=== PATIENT | male | born 1935 | race Caucasian/White ===

== ENCOUNTER 2019-08-18 13:40 | Emergency (ER) | payer MEDICARE, OTHER, SELFPAY ==
--- NOTE | ~2019-08-18 | XR_ITS ---
EXAMINATION: XR chest 2V DATE: 08/18/2019 15:09 INDICATION: Hypertension. TECHNIQUE: Frontal and lateral views of the chest were obtained. COMPARISON: Chest 2 views 11/27/2017, chest CT 06/26/2017 FINDINGS: The lungs are hyperexpanded with lucencies and interstitial opacities, consistent with emph ysema. There is mild scarring at the lung apices. There is mild atelectasis at the lung bases. No ple ural effusion or pneumothorax. The heart size is normal. IMPRESSION: 1. Emphysema. 2. Mild atelectasis at the lung bases. Reviewed, dictated and finalized at location A. WAY TECHNICIAN
[2019-08-18 13:55] VITALS: BP 193/72; PULSE 79; RESP 18; TEMP 36.6; O2SAT 96
--- NOTE | 2019-08-18 14:16 | ECG_ITS ---
Measurements Intervals [place] Rate: 84 P: 99 MN: 168 QRS: -74 QRSD: 93 T: 61 QT: 346 QTc: 411 Interpretive Statements SINUS RHYTHM POSSIBLE LEFT ATRIAL ENLARGEMENT LEFT ANTERIOR FASCICULAR BLOCK CANNOT RULE OUT SEPTAL INFARCT, AGE INDETERMINATE BASELINE ARTIFACT- I, II, AVR, AVL, AVF, V2, V4-V6 ABNORMAL ECG Electronically Signed On 08-18-2019 15:01:31 [employer] E[employer]CEMENT OFFICER by Rusty Rowell D.O.
--- NOTE | 2019-08-18 14:27 | ED.GENADULT ---
HPI - General Adult General Chief complaint: Unspecified <Bubba Lara PA-C - Last Filed: 08/18/19 16:26> Stated complaint: Elevated BP <Bubba Lara PA-C - Last Filed: 08/18/19 16:26> Time Seen by Provider: 08/18/19 14:11 <Bubba Lara PA-C - Last Filed: 08/18/19 16:26> Source: patient <Bubba Lara PA-C - Last Filed: 08/18/19 16:26> Mode of arrival: ambulatory <Bubba Lara PA-C - Last Filed: 08/18/19 16:26> Limitations: no limitations <Bubba Lara PA-C - Last Filed: 08/18/19 16:26> History of Present Illness HPI narrative: Patient is a 83-year-old male who presents to emergency department for evaluation of elevated blood pressure reading that was noticed this morning at 2 AM when he woke patient found his blood pressure to be elevated notes that he did feel anxious presents today noting that he was concern for elevated blood pressure denies any pain or other complaints does not take any blood pressure medication. Patient on arrival is noted resting comfortably in no distress with no other complaints <Bubba Lara PA-C - Last Filed: 08/18/19 16:26> Related Data Allergies/adverse reactions: Allergies Allergy/AdvReac Type Severity Reaction Status Date / Time levofloxacin Allergy Unknown Unknown Verified 08/18/19 13:54 <Bubba Lara PA-C - Last Filed: 08/18/19 16:26> Review of Systems Review of Systems: All systems reviewed & are unremarkable except as noted in HPI and below <Bubba Lara PA-C - Last Filed: 08/18/19 16:26> [facility] Family History Family History: Family History Sibling Family history of malignant neoplasm Malignant neoplasm of prostate Family history of lung cancer Father Family history of chronic obstructive pulmonary disease, Onset Age: 84 Mother Family history of lung cancer <MAYURI Joseph Last Filed: 08/18/19 16:26> Social History Social History: Social History Smoking status: Never smoker Smoking end date: 06/17/81 <MAYURI Joseph Last Filed: 08/18/19 16:26> Exam Narrative: Exam Narrative: GENERAL: Well-appearing, well-nourished, and in no acute distress. HEAD: Normocephalic, atraumatic. EYES: PERRLA and EOMI. ENT: Nares clear, no rhinorrhea or epistaxis. Mucous membranes moist. Oropharynx without tonsillar hypertrophy exudate or other lesions. NECK: Supple. No adenopathy or masses. CHEST: Clear to auscultation. No respiratory distress. No wheezes rales or rhonchi HEART: Regular rate and rhythm. No murmur heard. Normal peripheral pulses. ABDOMEN: Soft, nontender, nondistended EXTREMITIES: Normal range of motion. No edema. SKIN: Warm, dry, no rash. NEURO: No focal deficits. Alert and oriented x3. Cranial nerves II through XII grossly intact PSYCH: Normal mood and affect. <MAYURI Joseph Last Filed: 08/18/19 16:26> Course Consultations Consultation #1: Spoke with patient's primary care who will see him in clinic on Saturday at 130 notes that he has a history of hypertension has been noncompliant with medications and has refused to take blood pressure medication patient also has history of thrombocytopenia and will be followed in clinic with no recommendations to start medications at this time <MAYURI Joseph Last Filed: 08/18/19 16:26> Date: 08/18/19 <MAYURI Joseph Last Filed: 08/18/19 16:26> Vital Signs Vital signs: Vital Signs Temperature 36.6 C 08/18/19 13:55 Pulse Rate 79 08/18/19 13:55 Respiratory Rate 18 08/18/19 13:55 Blood Pressure 193/72 H 08/18/19 13:55 Pulse Oximetry 96 08/18/19 13:55 Temperature 36.6 C 08/18/19 13:55 Pulse Rate 105 H 08/18/19 16:35 Respiratory Rate 16 08/18/19 16:35 Blood Pressure 185/100 H 08/18/19 16:35 Pulse Oxim
[2019-08-18 14:51] LABS: Basophils Percent Auto 0.3 % (0.2-1.2); Hematocrit 40.8 % (42.0-52.0); Hemoglobin 13.1 g/dL (14.0-18.0); Immature Granulocyte Absolute 0.01 K/mm3 (0.00-0.031); Immature Granulocyte Percent A 0.3 % (0-0.5); Immature Platelet Fraction Pct 18.6 % (0.9-11.2); Lymphocytes Absolute Auto 1.62 K/mm3 (0.9-3.2); Lymphocytes Percent Auto 50.2 % (18.3-44.2); Mean Corpuscular HGB Conc 32.1 g/dl (32-36); Mean Corpuscular Volume 90.5 fl (80-100); Mean Platelet Volume 13.1 fl (7.4-10.4); Monocytes Absolute Auto 0.5 K/mm3 (0.1-0.6); Monocytes Percent Auto 16.4 % (2.6-8.5); Neutrophils Absolute Auto 1.1 K/mm3 (1.3-6.7); Neutrophils Percent Auto 32.8 % (45.5-73.1); Platelet Count Result 94 k/mm3 (150-375); Red Blood Count 4.51 M/mm3 (4.6-6.20); Red Cell Distribution Width 13.9 % (11.5-14.5); White Blood Count 3.2 K/mm3 (4.5-10.0)
[2019-08-18 15:01] LABS: Alanine Aminotransferase 15 U/L (4-50); Albumin Level 4.4 g/dL (3.5-5.1); Alkaline Phosphatase 61 U/L (38-126); Aspartate Amino Transferase 25 U/L (17-59); Bilirubin,Total 0.7 mg/dL (0.2-1.3); Blood Urea Nitrogen 9 mg/dL (9-20); Calcium 9.2 mg/dL (8.4-10.2); Carbon Dioxide 31 mmol/L (22-30); Chloride 96 mmol/L (98-107); Estimated Glomerular Filt Rate > 60; Glucose 90 mg/dL (75-110); Potassium 4.5 mmol/L (3.4-5.0); Sodium 135 mmol/L (137-145)
[2019-08-18 15:13] LABS: Troponin I < 0.012 ng/mL (0.000-0.034)
[2019-08-18 16:35] VITALS: BP 185/100; PULSE 105; RESP 16; O2SAT 95
== END 2019-08-18 16:41 | disposition home or self-care (01) ==
PROVIDERS: Emergency Medicine Emergency Medical Services; Emergency Provider Emergency Medicine
DX: I10 Essential (primary) hypertension (principal); R94.31 Abnormal electrocardiogram [ECG] [EKG]; I44.4 Left anterior fascicular block
CPT/HCPCS: 36415; 71046; 80053; 84484; 85025; 85055; 87804; 93005; 99284

== ENCOUNTER 2019-11-20 13:44 | Emergency (ER) | payer MEDICARE, OTHER, SELFPAY ==
--- NOTE | ~2019-11-20 | XR_ITS ---
XR chest 1V portable DATE: 11/20/2019 14:08 INDICATION: Cough, shortness of breath, fever TECHNIQUE: Portable upright AP chest on 11/20/2019 at 1409 hours COMPARISON: 08/18/2019 PA and lateral chest FINDINGS: Bilateral hyperinflation consistent with COPD. Chronic interstitial fibrotic changes at the lung bases. No pulmonary consolidation, pleural effusion, pulmonary vascular congestion or pneumotho rax is evident. Heart size is normal. No hilar or mediastinal enlargement. Diffuse osteopenia. IMPRESSION: Bilateral hyperinflation consistent with COPD Chronic interstitial fibrotic changes at the lung bases Reviewed, dictated and finalized at location A.
[2019-11-20 13:54] VITALS: BP 184/84; PULSE 98; RESP 20; TEMP 36.8; O2SAT 96
--- NOTE | 2019-11-20 13:56 | ED.GENADULT ---
HPI - General Adult General Chief complaint: Unspecified Stated complaint: wants COVID test, subjective fever Time Seen by Provider: 11/20/19 13:46 History of Present Illness HPI narrative: 84 yo w/ h/o COPD presents requesting COVID-19 testing. He reports that he is SOB. No more than baseline. He does not require O2 and it does not limit his activities. He contacted his PCP and they suggested that he get tested for COVID-19. No fever, sick contacts. Related Data Allergies Allergy/AdvReac Type Severity Reaction Status Date / Time levofloxacin Allergy Unknown Unknown Verified 11/20/19 13:58 Review of Systems Review of Systems: All systems reviewed & are unremarkable except as noted in HPI and below PMFSH Past Medical History Medical History Asthma Community acquired pneumonia COPD (chronic obstructive pulmonary disease) Dupuytrens contracture Hypertension Surgical History Surgical History (Updated 08/31/19 @ 11:12 by Deepali Vital [facility]) H/O hernia repair Family History Family History Sibling Family history of malignant neoplasm Malignant neoplasm of prostate Family history of lung cancer Father Family history of chronic obstructive pulmonary disease, Onset Age: 84 Mother Family history of lung cancer Social History Social History Smoking status: Never smoker Smoking end date: 06/17/81 Gender identity (if verbalized by the patient): Male Exam Const: General: healthy appearing, no acute distress and alert Orientation/consciousness: patient oriented x3 HENMT: Head: normal to inspection Neck: Neck: normal visual inspection and no lymphadenopathy Chest: Chest palpation & inspection: no tenderness Resp: Effort & Inspection: normal respiratory effort Auscultation: clear to auscultation bilaterally, rhonchi and wheezes Cardio: Jugular venous distension: no JVD Rate: regular rate Rhythm: regular rhythm Heart sounds: no murmurs GI: Inspection: non-distended GI Palp: Yes Soft to palpation and No Tenderness to palpation present (GI) Skin: General skin exam: normal color Neuro: General: patient oriented x3 and moves all extremities Speech: normal speech Extrem: General: no edema Psych: Appearance: well kempt Affect: normal affect Course Vital Signs Vital signs: Vital Signs Temperature 36.8 C 11/20/19 13:54 Pulse Rate 98 11/20/19 13:54 Respiratory Rate 20 11/20/19 13:54 Blood Pressure 184/84 H 11/20/19 13:54 Pulse Oximetry 96 11/20/19 13:54 Temperature 36.6 C 11/20/19 15:05 Pulse Rate 76 11/20/19 15:05 Respiratory Rate 16 11/20/19 15:05 Blood Pressure 154/76 H 11/20/19 15:05 Pulse Oximetry 98 11/20/19 15:05 Medical Decision Making MDM Narrative Medical decision making narrative: He has minimal wheezing with good air movment. He is able to walk long distances without restriction. He has no obvious indication that he has COVID-19 and ceratinly does not need admission. I will order testing and a chest x-ray. and have him follow-up with his PCP Vital Signs Vital Signs: Vital Signs Temperature 36.8 C 11/20/19 13:54 Pulse Rate 98 11/20/19 13:54 Respiratory Rate 20 11/20/19 13:54 Blood Pressure 184/84 H 11/20/19 13:54 Pulse Oximetry 96 11/20/19 13:54 Temperature 36.6 C 11/20/19 15:05 Pulse Rate 76 11/20/19 15:05 Respiratory Rate 16 11/20/19 15:05 Blood Pressure 154/76 H 11/20/19 15:05 Pulse Oximetry 98 11/20/19 15:05 Lab Data Labs: Lab Results 11/20/19 Range/Units 14:32 SARS-CoV-2 RNA (RT-PCR) Negative Discharge Plan Discharge Clinical Impression: COPD (chronic obstructive pulmonary disease) Patient Disposition: Home, Self-Care Condition: Stable Instructions: COPD (Chronic Obstructive Pulmonary Di
[2019-11-20 13:58] VITALS: RESP 20; O2SAT 96
[2019-11-20 15:05] VITALS: BP 154/76; PULSE 76; RESP 16; TEMP 36.6; O2SAT 98
[2019-11-21 13:39] LABS: SARS-CoV-2 RNA PCR Negative
== END 2019-11-20 15:06 | disposition home or self-care (01) ==
PROVIDERS: Emergency Provider Emergency Medicine
DX: J44.9 Chronic obstructive pulmonary disease, unspecified (principal); Z20.828 Contact with and (suspected) exposure to other viral communicable diseases; I10 Essential (primary) hypertension; M72.0 Palmar fascial fibromatosis [Dupuytren]
CPT/HCPCS: 71045; 87635; 99283; C9803; U0003

== ENCOUNTER 2020-03-03 10:45 | Emergency (ER) | payer MEDICARE, OTHER, SELFPAY ==
--- NOTE | ~2020-03-03 | CT_ITS ---
EXAMINATION: CT brain wo con EXAM DATE: 03/03/2020 11:31 INDICATION: Fall, head injury. TECHNIQUE: Spiral CT of the head was performed without contrast. Axial, coronal and sagittal images were reviewed. The dose-length product (DLP) for this examination was 605.33 mGy-cm. The exposure w as tailored according to patient size, and iterative reconstruction (ASIR) was used as additional dos e reduction technique. There is no prior study for comparison. FINDINGS: There is no acute intraparenchymal hemorrhage. Mild microangiopathy and cerebral atrophy. N o evidence of intraparenchymal brain mass lesion. No evidence of acute infarction. There is no mass effect or midline shift. The ventricles are normal in size. There are no extra-axial collections. There are no acute calvarial fractures. The orbits are unremarkable. Soft tissue is unremarkable. The visualized sinuses and mastoid air cells are well aerated. IMPRESSION: 1. No acute intracranial findings. 2. Mild age-related findings. Reviewed, dictated and finalized at location A.
[2020-03-03 10:56] VITALS: BP 182/80; PULSE 90; RESP 18; TEMP 36.4; O2SAT 100
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
[2020-03-03 12:16] VITALS: BP 173/84; PULSE 67; RESP 18; O2SAT 99
[2020-03-03 12:26] VITALS: BP 170/84; PULSE 82; RESP 98; O2SAT 98
== END 2020-03-03 12:27 | disposition home or self-care (01) ==
PROVIDERS: Emergency Provider Emergency Medicine
DX: S09.90XA Unspecified injury of head, initial encounter (principal); V18.4XXA Pedal cycle driver injured in noncollision transport accident in traffic accident, initial encounter; I10 Essential (primary) hypertension; J43.9 Emphysema, unspecified; Z87.891 Personal history of nicotine dependence
CPT/HCPCS: 70450; 99284

== ENCOUNTER 2020-11-07 08:39 | Emergency (ER) | payer MEDICARE, OTHER, SELFPAY ==
--- NOTE | ~2020-11-07 | CT_ITS ---
EXAMINATION: CT brain wo con INDICATION: Altered mental status, visual hallucinations COMPARISON: 03/03/2020 TECHNIQUE: Standard unenhanced head CT. The dose-length product (DLP) was 605.33 mGy-cm. The mA was a djusted according to patient size. Iterative reconstruction technique was employed. FINDINGS: There is no acute intraparenchymal hemorrhage. No evidence of mass lesion. No evidence of a cute infarction. There is mild periventricular and subcortical hypodensity probably related to small vessel ischemic disease. There is mild prominence of the sulci and ventricles related to cerebral atr ophy. Intracranial calcified cerebral atherosclerosis is noted. There are no extra-axial collections. There is no mass effect or midline shift. The orbits and soft tissues are unremarkable. There is mil d mucosal thickening of the paranasal sinuses. IMPRESSION: 1. No acute intracranial abnormality. 2. Age related findings. Reviewed, dictated and finalized at location A.
--- NOTE | ~2020-11-07 | XR_ITS ---
EXAMINATION: XR chest 1V DATE: 11/07/2020 09:26 INDICATION: Altered mental status. TECHNIQUE: A single frontal view of the chest was obtained. COMPARISON: Chest single view 11/20/2019, chest CT 06/26/2017 FINDINGS: There are lucencies and chronic interstitial opacities in the lungs, consistent with emphys harini. No pleural effusion or pneumothorax. The heart size is normal. IMPRESSION: 1. Severe emphysema. Reviewed, dictated and finalized at location B. IMPRESSION: 1. Severe emphysema.
[2020-11-07 08:43] VITALS: BP 201/92; PULSE 93; RESP 17; TEMP 36.6; O2SAT 98
--- NOTE | 2020-11-07 09:07 | ECG_ITS ---
Measurements Intervals [place] Rate: 75 P: 77 VT: 145 QRS: -74 QRSD: 105 T: 40 QT: 392 QTc: 438 Interpretive Statements SINUS RHYTHM LEFT ANTERIOR FASCICULAR BLOCK BASELINE ARTIFACT- II, III, AVF, V1, V3-V6 ABNORMAL ECG Electronically Signed On 11-07-2020 9:57:17 CDT by Rusty Rowell D.O.
--- NOTE | 2020-11-07 09:15 | ED.GENADULT ---
HPI - General Adult General Chief complaint: Unspecified Stated complaint: having visions/hallucinations/head sore Time Seen by Provider: 11/07/20 08:58 Source: RN notes reviewed History of Present Illness HPI narrative: Patient presents emergency department from home for visual hallucinations. He states for the past 4 days he has been having intermittent visual hallucinations which he sees things that are not there or sees things in different colors. He states he knows he is or not real he denies hearing any voices or having any auditory hallucinations he denies any fevers or chills, headache, numbness or tingling in extremities, chest pain shortness of breath or any other symptoms. Patient denies any new medications patient does states that he fell back in April 2020 and has an area on his left posterior scalp that will intermittently swell on him but denies any new headaches or pain at this time Related Data Home Medications Medication Instructions Recorded Confirmed ascorbic acid (vitamin C) 100 mg 100 mg PO DAILY 03/01/20 03/02/20 tablet mecobalamin (vitamin B12) 1,000 1,000 mcg PO DAILY 03/01/20 03/02/20 mcg chewable tablet multivitamin 1 tablet PO DAILY 03/01/20 03/02/20 pyridoxine (vitamin B6) 100 mg 100 mg PO DAILY 03/01/20 03/02/20 tablet vitamin E (dl, acetate) 400 unit 450 mg PO DAILY 03/01/20 03/02/20 capsule albuterol sulfate 90 mcg/actuation 1 puff INHALATION Q4H PRN 03/02/20 03/02/20 aerosol inhaler Allergies Allergy/AdvReac Type Severity Reaction Status Date / Time levofloxacin Allergy Unknown Unknown Verified 03/03/20 11:01 Review of Systems Review of Systems: Narrative: Gen.: Denies fevers or chills Eyes: See HPI ENT: Denies congestion Respiratory: Denies shortness of breath or cough CV: Denies chest pain or palpitations GI: Denies abdominal pain nausea, emesis or diarrhea Musculoskeletal: Denies back pain or muscle pain Neuro: Denies numbness, tingling, weakness or focal weakness Skin: Denies rash Except as documented, all other systems reviewed and negative [facility] Past Medical History Medical History (Updated 11/07/20 @ 12:40 by Fabiano Copeland DO) Asthma Community acquired pneumonia COPD (chronic obstructive pulmonary disease) Dupuytrens contracture Hypertension Surgical History Surgical History (Updated 08/31/19 @ 11:12 by Deepali Vital [facility]) H/O hernia repair Family History Family History (Updated 03/01/20 @ 13:09 by Vesna Jolley [facility]) Sibling Family history of malignant neoplasm Malignant neoplasm of prostate Family history of lung cancer Leukemia Father Family history of chronic obstructive pulmonary disease, Onset Age: 84 Mother Family history of lung cancer Social History Social History Smoking status: Never smoker Smoking end date: 06/17/81 Gender identity (if verbalized by the patient): Male Exam Narrative: Exam Narrative: APPEARANCE: No acute distress, nontoxic, resting in bed EYES: EOMI, PERRL HEENT: Normocephalic, atraumatic, OMM RESPIRATORY: No respiratory distress Clear to auscultation bilaterally with no rhonchi wheezing or rales. CARDIOVASCULAR: Regular rate and rhythm without murmurs rubs or gallops. ABDOMINAL: Soft, nontender, nondistended, no rebound or guarding MUSCULOSKELETAl: Moves all extremities. No clubbing, cyanosis or edema. NEURO: Awake and alert x 4. Following commands, speech normal, no focal deficits SKIN:: Warm, dry. No rashes lesions or abrasions PSYCHIATRIC: Normal affect/mood, Course Course Emergency Course: : Discussed with patient's PCP Dr. Torres presentation work-up states the patient has had similar complaints before in the past seen ophthalmology and has had several CTs including MRI agrees with plan for discharge to follow-up as an outpatient States he is scheduled to see ophthalmology tomorrow Discussed with edmundo
[2020-11-07 09:30] VITALS: PULSE 82
[2020-11-07 09:52] LABS: Basophils Percent Auto 0.2 % (0.2-1.2); Eosinophils Percent Auto 0.2 % (0-4.4); Hematocrit 43.7 % (42.0-52.0); Hemoglobin 14.3 g/dL (14.0-18.0); Immature Granulocyte Absolute 0.02 K/mm3 (0.00-0.031); Immature Granulocyte Percent A 0.4 % (0-0.5); Lymphocytes Absolute Auto 1.16 K/mm3 (0.9-3.2); Lymphocytes Percent Auto 24.9 % (18.3-44.2); Mean Corpuscular HGB Conc 32.7 g/dl (32-36); Mean Corpuscular Hemoglobin 29.4 pg (26-34); Mean Corpuscular Volume 89.9 fl (80-100); Mean Platelet Volume 11.9 fl (7.4-10.4); Monocytes Absolute Auto 0.8 K/mm3 (0.1-0.6); Neutrophils Absolute Auto 2.7 K/mm3 (1.3-6.7); Neutrophils Percent Auto 57.3 % (45.5-73.1); Platelet Count Result 106 k/mm3 (150-375); Red Blood Count 4.86 M/mm3 (4.6-6.20); Red Cell Distribution Width 13.9 % (11.5-14.5); White Blood Count 4.7 K/mm3 (4.5-10.0)
[2020-11-07 10:04] LABS: Partial Thromboplastin Time 30.8 SECONDS (22.3-36.8); Prothrombin Time 13.4 Seconds (11.1-14.7)
[2020-11-07 10:05] LABS: Ethanol < 10 mg/dL (<10)
[2020-11-07 10:14] VITALS: BP 178/81; PULSE 85; RESP 17; O2SAT 96
--- NOTE | 2020-11-07 10:16 | PC.NURSE ---
Addendum entered by Svitlana Patel RN 11/07/20 10:17: pt states this is the fist time that he has ever seen things Original Note: pt reports seeing cute little critters running about . pt denies hearing voices.
[2020-11-07 10:34] LABS: Add Urine Microscopic? YES; Appearance Urine Clear (Clear); Bacteria Urine Trace /hpf; Bilirubin Urine Negative (Negative); Blood Urine Negative (Negative); Color Urine Yellow (Yellow); Glucose Urine UA Negative (Negative); Ketones Urine Negative (Negative); Leukocyte Esterase Ur Negative LEU/UL (Negative); Nitrate Urine Negative (Negative); Protein Urine Negative (Negative); Urobilinogen Urine Negative mg/dL (<2.0); WBC Urine 0-3 /hpf
[2020-11-07 11:14] LABS: Alanine Aminotransferase 20 U/L (4-50); Albumin Level 3.9 g/dL (3.5-5.1); Alkaline Phosphatase 60 U/L (38-126); Anion Gap 3 mmol/L (8-16); Aspartate Amino Transferase 30 U/L (17-59); Bilirubin,Total 0.5 mg/dL (0.2-1.3); Blood Urea Nitrogen 9 mg/dL (9-20); Calcium 9.2 mg/dL (8.4-10.2); Carbon Dioxide 34 mmol/L (22-30); Chloride 99 mmol/L (98-107); Estimated Glomerular Filt Rate > 60; Glucose 95 mg/dL (75-110); Potassium 3.9 mmol/L (3.4-5.0); Sodium 136 mmol/L (137-145)
[2020-11-07 12:55] VITALS: BP 132/66; PULSE 78; RESP 18; O2SAT 99
== END 2020-11-07 12:58 | disposition home or self-care (01) ==
PROVIDERS: Emergency Provider Emergency Medicine
DX: R44.1 Visual hallucinations (principal); J43.9 Emphysema, unspecified; I10 Essential (primary) hypertension; M72.0 Palmar fascial fibromatosis [Dupuytren]; I44.4 Left anterior fascicular block; Z79.899 Other long term (current) drug therapy
CPT/HCPCS: 36415; 70450; 71045; 80053; 80307; 81001; 85025; 85610; 85730; 93005; 99284

== ENCOUNTER 2021-06-10 22:00 | Emergency (ER) | payer MEDICARE, OTHER, SELFPAY ==
[2021-06-10] VITALS (12 sets, daily range): BP systolic 175–204; BP diastolic 86–102; PULSE 88–101; RESP 24–40; TEMP 36.9; O2SAT 88–100
--- NOTE | ~2021-06-10 | CT_ITS ---
EXAMINATION: CT diagnostic chest wo con DATE: 06/10/2021 22:48 INDICATION: Right chest wall injury TECHNIQUE: Computed tomography (CT) of the chest was performed without intravenous contrast. Addition al 3D reconstructions utilizing coronal maximum intensity projection (MIP) were performed. Automated exposure control and iterative reconstruction technique were employed. The dose-length product was 23 7.46 mGy-cm. COMPARISON: 06/26/2017 FINDINGS: Mildly displaced mildly comminuted fractures at the lateral head of the right clavicle. Mildly displa hussain fractures of the posterior right third-11th ribs. There is some callus formation associated with subacute to chronic fractures of the anterolateral left fourth-seventh ribs. Severe emphysema. Very s mall right hydropneumothorax. 1.7 x 1.1 cm nodular opacity anterior segment of the right upper lobe. 6-7 mm nodule at the right middle lobe. Additional cluster of small nodular opacities in the dependen t left lower lobe with distribution suggesting aspiration or pneumonia. Small amount of mucus in the trachea and right mainstem bronchus. Heart size is normal. Atherosclerotic coronary artery calcificat ion is. No pericardial effusion. Mildly ectatic ascending thoracic aorta measuring up to 3.9 cm in ma ximal diameter. No pathologically enlarged thoracic lymphadenopathy. Small amount of soft tissue gas along the anterior right chest wall. Several tiny calcified gallstones in dependent aspect of the par tially visualized normal-appearing gallbladder. IMPRESSION: 1. Acute mildly displaced posterior right third-11th rib fractures with small right hydropneumothorax . 2. Mildly displaced mildly comminuted fractures of the lateral head of the right clavicle. 3. Increase in size of a nodule measuring 6 mm on 06/26/2017, now 1.7 x 1.1 cm in the right upper lobe which is very concerning for primary bronchogenic carcinoma. The location within a couple millimeter of the anterior wall of the ascending aorta would be technically challenging and at relatively high risk for percutaneous biopsy. 4. Cluster of small nodules in the dependent left lower lobe suspicious for aspiration and/or pneumon ia. 5. Cholelithiasis. Reviewed, dictated and finalized at [facility] IMPRESSION: 1. Acute mildly displaced posterior right third-11th rib fractures with small r ight hydropneumothorax. 2. Mildly displaced mildly comminuted fractures of the lateral head of the righ t clavicle. 3. Increase in size of a nodule measuring 6 mm on 06/26/2017, now 1.7 x 1.1 cm i n the right upper lobe which is very concerning for primary bronchogenic carcin charlene. The location within a couple millimeter of the anterior wall of the ascend ing aorta would be technically challenging and at relatively high risk for perc utaneous biopsy. 4. Cluster of small nodules in the dependent left lower lobe suspicious for asp iration and/or pneumonia. 5. Cholelithiasis.
--- NOTE | ~2021-06-10 | CT_ITS ---
EXAMINATION: CT brain wo con DATE: 06/10/2021 22:48 INDICATION: Fall. Head injury. TECHNIQUE: Computed tomography (CT) of the head was performed without intravenous contrast. The mA wa s adjusted according to patient size. Iterative reconstruction technique was employed. Exam dose: 68 1.00 mGy-cm total exam DLP. COMPARISON: 11/03/2020 CT brain FINDINGS: There is hematoma of the left temporal lobe with slight left sided acute subdural hematoma. There is some subarachnoid blood left temporal area. There is some extracranial soft tissue thickeni ng in the right temporal parietal area. There is no significant midline shift or mass effect. Bilateral carotid siphon internal carotid artery calcifications. No intracranial mass lesion is evident. There is a fluid level in the right maxillary sinus and patch y opacification of ethmoid air cells, right greater than left. Fluid levels are noted in the sphenoid sinuses. No skull fracture is evident. IMPRESSION: Left temporal lobe hematoma with subarachnoid blood and shallow left acute subdural nichole rody Right temporal parietal extracranial soft tissue swelling Reviewed, dictated and finalized at [facility]. Reviewed, dictated and finalized at [facility]. [facility]IMMER IMPRESSION: Left temporal lobe hematoma with subarachnoid blood and shallow le ft acute subdural hematoma Right temporal parietal extracranial soft tissue swelling
--- NOTE | ~2021-06-10 | CT_ITS ---
EXAMINATION: CT facial bones wo con DATE: 06/10/2021 22:48 INDICATION: Head injury post fall TECHNIQUE: Computed tomography (CT) of the facial bones and maxillofacial region was performed withou t intravenous contrast. Coronal reconstructions were obtained. Automated exposure control and iterati ve reconstruction technique were employed. The dose-length product was 339.17 mGy-cm. COMPARISON: None. FINDINGS: Fractures of the right zygomatic arch, the medial wall and floor of the right orbit extending into th e anterior and lateral galdamez of the right maxillary sinus. All are nondisplaced. There is small amoun t of layering blood in the right maxillary, right ethmoid and bilateral sphenoid sinuses. No evident fracture of the nasal septum which is slightly bowed towards the left paralleling the contours of the turbinates and without evident soft tissue swelling to suggest occult fracture. Minimal soft tissue gas within the inferior right orbit. There is also preseptal soft tissue swelling at the right orbit. Bilateral globes appear intact with just of bilateral intraocular lens replacement. Mandible is inta ct with normal alignment of the bilateral temporomandibular joints. The maxilla substantial and there are only 3 remaining teeth each with dental caries along the mandible. Moderate spondylosis at the v isualized mid to upper cervical spine. IMPRESSION: 1. Nondisplaced fractures of the medial and inferior galdamez of the right orbit, the superior, anterior and lateral galdamez of the right maxillary sinus and of the right zygomatic arch. No evident herniatio n of the inferior rectus muscle but would correlate with ophthalmic exam to exclude entrapment. Reviewed, dictated and finalized at [facility]. MIXER IMPRESSION: 1. Nondisplaced fractures of the medial and inferior galdamez of the right orbit, the superior, anterior and lateral galdamez of the right maxillary sinus and of th e right zygomatic arch. No evident herniation of the inferior rectus muscle but would correlate with ophthalmic exam to exclude entrapment.
--- NOTE | 2021-06-10 22:15 | ED.SOB ---
HPI - SOB/Dyspnea General Chief Complaint: Fall Stated Complaint: glf - rt eye hematoma, rt arm abrasion, rt crepati Time Seen by Provider: 06/10/21 22:08 Source: EMS Mode of arrival: EMS Limitations: dementia History of Present Illness HPI Narrative: Patient is an 85-year-old male brought in from senior care/assisted living facility after being found on the floor, patient complaining of right-sided rib pain. Patient cannot recall what happened. Patient wheezing and mild respiratory distress upon arrival, history of COPD. Patient has abrasions on his face, periorbital ecchymosis and redness in the right lateral ribs. Related Data Home Medications Medication Instructions Recorded Confirmed ascorbic acid (vitamin C) 100 mg 100 mg PO DAILY 03/01/20 03/02/20 tablet mecobalamin (vitamin B12) 1,000 1,000 mcg PO DAILY 03/01/20 03/02/20 mcg chewable tablet multivitamin 1 tablet PO DAILY 03/01/20 03/02/20 pyridoxine (vitamin B6) 100 mg 100 mg PO DAILY 03/01/20 03/02/20 tablet vitamin E (dl, acetate) 180 mg 450 mg PO DAILY 03/01/20 03/02/20 (400 unit) capsule albuterol sulfate 90 mcg/actuation 1 puff INHALATION Q4H PRN 03/02/20 03/02/20 aerosol inhaler Allergies Allergy/AdvReac Type Severity Reaction Status Date / Time levofloxacin Allergy Unknown Unknown Verified 03/03/20 11:01 Review of Systems Review of Systems: All systems reviewed & are unremarkable except as noted in HPI and below Constitutional: Constitutional: Denies body ache(s), Denies chills, Denies excessive sweating, Denies fatigue, Denies fever(s), Denies headache(s), Denies lethargy, Denies malaise, Denies weakness and Denies weight loss Eyes: Eyes: Denies blurry vision, Denies change in vision and Denies loss of vision ENT: Denies dizziness, Denies ear discharge, Denies headache(s), Denies lip swelling, Denies epistaxis, Denies nasal congestion, Denies neck pain, Denies throat swelling and Denies tongue swelling Cardiovascular: Cardiovascular: Denies chest pain, Denies chest pain at rest, Denies chest pain with activity, Denies diaphoresis, Denies rapid heart rate, Denies edema, Denies irregular heart rhythm, Denies lightheadedness, Denies palpitations, Denies dyspnea and Denies dyspnea on exertion Gastrointestinal: Gastrointestinal: Denies abdominal pain, Denies melena, Denies hematochezia, Denies diarrhea, Denies nausea, Denies vomiting and Denies hematemesis Musculoskeletal: Musculoskeletal: Denies abnormal gait, Denies deformity, Denies joint swelling, Denies limited range of motion, Denies neck pain and Denies numbness Neurologic: Denies Abnormal speech present, Denies abnormal gait, Denies confusion, Denies dizziness, Denies headache(s), Denies focal weakness, Denies loss of vision, Denies numbness, Denies Other visual disturbances, Denies Sensory deficit (Neuro) and Denies weakness Psychiatric: Psychiatric: Denies depression, Denies auditory hallucinations, Denies homicidal ideation and Denies suicidal ideation Endocrine: Endocrine: Denies cold intolerance, Denies excessive sweating, Denies fatigue, Denies heat intolerance and Denies palpitations Hematologic/Lymphatic: Hematologic/Lymphatic: Denies easy bleeding and Denies easy bruising Allergic/Immunologic: Allergic/Immunologic: Denies lip swelling, Denies throat swelling and Denies tongue swelling [facility] Past Medical History Medical History (Updated 06/10/21 @ 23:38 by Fabiano Dimas MD) Asthma Community acquired pneumonia COPD (chronic obstructive pulmonary disease) Dupuytrens contracture Hypertension Surgical History Surgical History H/O hernia repair Family History Family History Sibling Family history of malignant neoplasm Malignant neoplasm of prostate Family history of lung cancer Leukemia Father Family history of chronic obstructive pulmonary dise
[2021-06-10 22:29] LABS: Basophils Percent Auto 0.4 % (0.2-1.2); Eosinophils Percent Auto 0.1 % (0-4.4); Hematocrit 42.3 % (42.0-52.0); Hemoglobin 13.9 g/dL (14.0-18.0); Immature Granulocyte Absolute 0.18 K/mm3 (0.00-0.031); Immature Granulocyte Percent A 2.1 % (0-0.5); Lymphocytes Absolute Auto 1.86 K/mm3 (0.9-3.2); Lymphocytes Percent Auto 21.8 % (18.3-44.2); Mean Corpuscular HGB Conc 32.9 g/dl (32-36); Mean Corpuscular Hemoglobin 29.3 pg (26-34); Mean Corpuscular Volume 89.2 fl (80-100); Mean Platelet Volume 12.2 fl (7.4-10.4); Monocytes Absolute Auto 1.5 K/mm3 (0.1-0.6); Neutrophils Percent Auto 58.6 % (45.5-73.1); Platelet Count Result 104 k/mm3 (150-375); Red Blood Count 4.74 M/mm3 (4.6-6.20); Red Cell Distribution Width 14.5 % (11.5-14.5); White Blood Count 8.5 K/mm3 (4.5-10.0)
[2021-06-10 22:39] LABS: Anion Gap 4 mmol/L (8-16); Blood Urea Nitrogen 18 mg/dL (9-20); Calcium 8.9 mg/dL (8.4-10.2); Carbon Dioxide 30 mmol/L (22-30); Chloride 101 mmol/L (98-107); Estimated CRCL calculation 48 ml/min; Estimated Glomerular Filt Rate > 60; Glucose 159 mg/dL (65-110); Potassium 4.5 mmol/L (3.4-5.0); Sodium 135 mmol/L (137-145)
[2021-06-10] MEDS: ALBUTEROL SULFATE NEB 2.5 MG/0.5 ML INH 5 MG INHALATION (23:07)
[2021-06-10] MEDS: IPRATROPIUM BR 0.02% INH SOLN 0.5 MG/2.5 ML VIAL INHALATION (23:07)
[2021-06-10] MEDS: HYDROmorphone HCL INJ (*CRX) 1 MG/ML SYR 0.5 MG IV PUSH (23:08)
[2021-06-10] MEDS: methylPREDNISolone SOD SUCC 125 MG VIAL IV PUSH (23:08)
[2021-06-10] MEDS: SODIUM CHLORIDE 0.9% IV 100 ML 500 ML (23:10)
--- NOTE | 2021-06-10 23:45 | PC.NURSE ---
pt becoming increasingly confused/ combative, pulling at wires and tubes, notiifed Dr Dimas and request order for ativan.
[2021-06-11] VITALS: PULSE 103; RESP 22
[2021-06-11 00:01] VITALS: BP 163/121; PULSE 108; RESP 25
[2021-06-11] MEDS: LORazepam INJ (*CRX) 2 MG/ML VIAL 1 MG IV PUSH (00:04)
--- NOTE | 2021-06-11 00:24 | PC.NURSE ---
RN spoke with Desiree ( Daughter) on the phone to give update about pt current condition. notified that pt was being transferred to [facility] ER as trauma transfer. given contact info on how to locate pt at [facility]
== END 2021-06-11 00:15 | disposition short-term general hospital (02) ==
PROVIDERS: Emergency Provider Emergency Medicine
DX: S06.5X9A Traumatic subdural hemorrhage with loss of consciousness of unspecified duration, initial encounter (principal); S02.831A Fracture of medial orbital wall, right side, initial encounter for closed fracture; S02.31XA Fracture of orbital floor, right side, initial encounter for closed fracture; S02.40CA Maxillary fracture, right side, initial encounter for closed fracture; S02.40EA Zygomatic fracture, right side, initial encounter for closed fracture; S22.41XA Multiple fractures of ribs, right side, initial encounter for closed fracture; S42.031A Displaced fracture of lateral end of right clavicle, initial encounter for closed fracture; K80.20 Calculus of gallbladder without cholecystitis without obstruction; R91.8 Other nonspecific abnormal finding of lung field; J44.9 Chronic obstructive pulmonary disease, unspecified; I10 Essential (primary) hypertension; M72.0 Palmar fascial fibromatosis [Dupuytren]; Z87.01 Personal history of pneumonia (recurrent); W19.XXXA Unspecified fall, initial encounter
CPT/HCPCS: 36415; 36600; 70450; 70486; 71250; 80048; 85025; 96374; 96375; 99291; J1170; J2060; J2930